=== PATIENT | female | born 1965 | race Caucasian/White ===

== ENCOUNTER 2022-10-23 11:23 | Emergency (ER) | payer OTHER ==
--- OUTSIDE RECORDS SUMMARY | 2022-10-23 11:26 | XMS REPORT | Continuity of Care Document ---
:1965 Author Organization [facility] t Address [address] [place] [address] Dr. [address] [place] [address] Care Team Providers Name Role Phone Pcp, Patient Does Not Have A Primary Care Physician +[id number] Doctor Unassigned, [place] Attending Clinician Unavailable Maisha Ahuja MD Attending Clinician MAISHA AHUJA Attending Clinician Unavailable George Hamm DO Attending Clinician Maegan Loya RN Attending Clinician Unavailable Only, Adc Test Attending Clinician Unavailable Nathan Butt MD Attending Clinician NATHAN BUTT Attending Clinician Unavailable Payers Payer Name Policy Type Policy Number Effective Date Expiration Date S luz marina [employer] CHOICE POS [id number] 2018 00:00:00 II Problems This patient has no known problems. Allergies, Adverse Reactions, Alerts Allergy Allergy Status Severity Reaction(s) Onset Inactive Treating Comm ents Source Name Type Date Date Clinician NO KNOWN Drug Active Univers ALLERGIE Class ity of [facility] Social History Social Habit Start Date Stop Date Quantity Comments Source History [facility] University o f Alcohol Comment [place] Med ical Branch Exposure to Not sure University of SARS-CoV-2 [facility] (event) Branch Tobacco use and 2021-01-26 2021-01-26 Never used Universit y of exposure 00:00:00 00:00:00 [facility] Alcohol intake 2021-01-26 2021-01-26 Lifetime University of 00:00:00 00:00:00 non-drinker [facility] (finding) Branch History SDOH 2021-01-19 2021-01-19 1 University o f Alcohol Frequency 00:00:00 00:00:00 [facility] edical Branch History SDCO 2021-01-19 2021-01-19 99 [place] o f Alcohol Std 00:00:00 00:00:00 [place] [facility] Branch History SDCO 2021-01-19 2021-01-19 1 [place] o f Alcohol Binge 00:00:00 00:00:00 [facility] [place] Sex Ass[birth year] At [birth year] Universit y of 00:00:00 00:00:00 [facility] Smoking Status Start Date Stop Date Source Never smoked tobacco [facility] Medications Ordered Filled Start Stop Current Ordering Indication Dosage Frequency Signature Comments Components Source Medication Medication Date Date Medication? Clinician (SIG) Name Name estradioL Yes [id number] 1{each} Insert 1 Univers (IMVEXXY 9- Each into ity of [place] P[place] 4 mcg 00 daily. Medica l Inst Insert Branch into vagina daily for the first 2 weeks and then two times a week for 2 weeks, then every 3 to 4 days. estradioL Yes [id number] 1{each} Insert 1 Univers (IMVEXXY 9-02 Each into ity of [place] 4 mcg 00 daily. Medica l Inst Insert Branch into vagina daily for the first 2 weeks and then two times a week for 2 weeks, then every 3 to 4 days. estradioL Yes [id number] 1{each} Insert 1 Univers (IMVEXXY 9-02 Each into ity of [place] PACK[place] 4 mcg 00 daily. Medica l Inst Insert Branch into vagina daily for the first 2 weeks and then two times a week for 2 weeks, then every 3 to 4 days. estradioL 2020- No [id number] 1{each} Insert 1 Univers (IMVEXXY 03-07 Each into ity o f MAINTENANCE 00:00: 00:00 vagina [place] PACK) 4 mcg 00 :00 daily. Medica l Inst Insert Branch into vagina daily for the first 2 weeks and then two times a week for 2 weeks, then every 3 to 4 days. estradioL 2020- No [id number] 1{each} Insert 1 Univers (IMVEXXY -12 07-28 Each into ity o f MAINTENANCE 00:00: 00:00 vagina [place] PACK) 4 mcg 00 :00 daily. Medica l Inst Insert Branch into vagina daily for the first 2 weeks and then two times a week for 2 weeks, then every 3 to 4 days. conjugated 2020-0 Yes [id number] .5g Insert 0.5 Univers estrogens 3-17 g into ity of (PREMARIN[place] 0.625 00 bedtime. Medical mg/gram Take Branch vaginal nightly cream for 21 days, then off for 7 days, then twice per week. alendronate 0 Yes 35mg Take 35 mg Univers 35 mg 2-24 by mouth ity of tablet 19:45: weekly. [address] calcium 2020-0 Yes Take by Univers carbonate/v 2-24 mouth. ity of itamin D2 19:45: [place] (CALCIUM 40 Medical 600 + D Branch ORAL) MULTIVITAMI 0 Yes Take by Uni vers N ORAL 2-24 mouth. ity of 19:45: [address] alendronate 2020-0 Yes 35mg Take 35 mg Univers 35 mg 2-24 by mouth ity of tablet 19:45: weekly. [address] calcium 2020-0 Yes Take by Univers carbonate/v 2-24 mouth. ity of itamin D2 19:45: [place] (CALCIUM 40 Medical 600 + D Branch ORAL) MULTIVITAMI 0 Yes Take by Uni vers N ORAL 2-24 mouth. ity of 19:45: [address] alendronate 2020-0 Yes 35mg Take 35 mg Univers 35 mg 2-24 by mouth ity of tablet 19:45: weekly. [address] calcium 2020-0 Yes Take by Univers carbonate/v 2-24 mouth. ity of itamin D2 19:45: [place] (CALCIUM 40 Medical 600 + D Branch ORAL) MULTIVITAMI 2020-0 Yes Take by Uni vers N ORAL 2-24 mouth. ity of 19:45: [address] alendronate 2020-0 Yes 35mg Take 35 mg Univers 35 mg 2-24 by mouth ity of tablet 19:45: weekly. [address] calcium 2020-0 Yes Take by Univers carbonate/v 2-24 mouth. ity of itamin D2 19:45: [place] (CALCIUM 40 Medical 600 + D Branch ORAL) MULTIVITAMI 0 Yes Take by Uni vers N ORAL 2-24 mouth. ity of 19:45: [address] alendronate 0 Yes 35mg Take 35 mg Univers 35 mg 2-24 by mouth ity of tablet 19:45: weekly. [address] calcium 0 Yes Take by Univers carbonate/v 2-24 mouth. ity of itamin D2 19:45: [place] (CALCIUM 40 Medical 600 + D Branch ORAL) MULTIVITAMI 0 Yes Take by Uni vers N ORAL 2-24 mouth. ity of 19:45: [address] alendronate Yes 35mg Take 35 mg Univers 35 mg 2-24 by mouth ity of tablet 19:45: weekly. [address] calcium Yes Take by Univers carbonate/v 2-24 mouth. ity of itamin D2 19:45: [place] (CALCIUM 40 Medical 600 + D Branch ORAL) MULTIVITAMI Yes Take by Uni vers N ORAL 2-24 mouth. ity of 19:45: [address] alendronate Yes 35mg Take 35 mg Univers 35 mg 2-24 by mouth ity of tablet 13:45: weekly. [address] calcium 0 Yes Take by Univers carbonate/v 2-24 mouth. ity of itamin D2 13:45: [place] (CALCIUM 40 Medical 600 + D Branch ORAL) MULTIVITAMI Yes Take by Uni vers N ORAL 2-24 mouth. ity of 13:45: [address] alendronate 2020-0 Yes [id number] 35mg Take 1 Univers 35 mg 2-24 tablet by ity of tablet 00:00: mouth [place] 00 weekly. [facility] Branch estradioL 2020-0 Yes [id number] 2g Insert 2 g Univers 0.01 % (0.1 2-24 into ity of mg/gram) 00:00: vagina at [facility] s vaginal 00 bedtime. Medical cream Every Branch night for 2 weeks, then 2-3 times per week. alendronate 0 Yes [id number] 35mg Take 1 Univers 35 mg 2-24 tablet by ity of tablet 00:00: mouth [place] [address] [facility] alendronate Yes [id number] 35mg Take 1 Univers 35 mg 2-24 tablet by ity of tablet 00:00: mouth [place] [address] [facility] alendronate Yes [id number] 35mg Take 1 Univers 35 mg 2-24 tablet by ity of tablet 00:00: mouth [place] [address] [facility] alendronate Yes [id number] 35mg Take 1 Univers 35 mg 2-24 tablet by ity of tablet 00:00: mouth [place] [address] [facility] alendronate Yes [id number] 35mg Take 1 Univers 35 mg 2-24 tablet by ity of tablet 00:00: mouth [place] [address] [facility] alendronate Yes [id number] 35mg Take 1 Univers 35 mg 2-24 tablet by ity of tablet 00:00: mouth [place] [address] [facility] estradioL Yes [id number] 2g Insert 2 g Univers 0.01 % (0.1 2-24 into ity of mg/gram) 00:00: vagina at [facility] s vaginal 00 bedtime. Medical cream Every Branch night for 2 weeks, then 2-3 times per week. No known No Univers medications [facility] No known No Univers medications [facility] No known No Univers medications [facility] Immunizations Ordered Filled Immunization Date Status Comments [facility] e Immunization Name Name Influenza Virus 2020-09-26 Completed Universit y of Vaccine 00:00:00 [facility] Influenza Virus 2020-09-26 Completed Universit y of Vaccine 00:00:00 [facility] Influenza Virus 2020-09-26 Completed Universit y of Vaccine 00:00:00 [facility] Influenza Virus 2020-09-26 Completed Universit y of Vaccine 00:00:00 [facility] Influenza Virus 2020-09-26 Completed Universit y of Vaccine 00:00:00 [facility] Influenza Virus 2020-09-26 Completed Universit y of Vaccine 00:00:00 [facility] Influenza Virus 2020-09-26 Completed Universit y of Vaccine 00:00:00 [facility] Procedures Procedure Date / Time Performing Clinician Source Performed AUTHORIZATION FOR RELEASE 2022-06-12 05:01:00 Doctor Unassigned, [facility] [place] [facility] MEDICATION CORRESPONDENCE 2021-02-24 05:01:00 Doctor Alejo, [facility] [place] [facility] DEXA AXIAL (HIP AND 2021-01-26 19:43:10 Maisha Ahuja [facility] SPINE) Medical Branch CONSENT/REFUSAL FOR 2021-01-26 19:21:34 Doctor Alejo, [facility] DIAGNOSIS AND TREATMENT [place] [facility] ASSIGNMENT OF BENEFITS 2021-01-26 19:21:15 [facility], [facility] [place] [facility] ASSIGNMENT OF BENEFITS 2020-08-27 16:38:19 Doctor Unasskenyon, [facility] [place] [facility] Encounters Start End Encounter Admission Attending Care Care Encounter Source Date/Time Date/Time Type Type Clinicians Facility Department ID 2022-06-12 2022-06-12 Orders Doctor CESAR 1.2.840.114 [id number] Univers 00:00:00 00:00:00 Only UnassLORY [place] [id number] ity of [place] [facility] [id number] Ruy as [id number] [facility] 009 Branch 2021-07-28 2021-07-28 Refill Maisha Ahuja [facility] 1.2.840.114 [id number] Univers 00:00:00 00:00:00 [place] [id number] it y of Women's 4.2.7.2.686 [facility] [id number] [facility] 134 Branch 2021-03-03 2021-03-03 Outpatient R MAISHA AHUJA [facility] [id number] Univers 13:00:00 13:00:[address] [facility] 2021-02-24 2021-02-24 Orders Doctor CESAR 1.2.840.114 [id number] Univers 00:00:00 00:00:00 Only UnassLORY [place] [id number] ity of [place] [facility] 4.2.7.2.686 [place]uy as [id number] [facility] 009 Branch 2021-02-15 2021-02-15 Patient Hansel [facility] 1.2.840.114 [id number] Univers 00:00:00 00:00:00 Outreach George NG [id number] i ty of [facility] 4.2.7.2.686 [place] [id number] Ca dical 388 Branch 2021-01-26 2021-01-26 [facility] Maisha Ahuja [facility] 1.2.840.114 [id number] Univers 13:00:00 23:59:00 Encounter [place] [id number] ity of [place].7.2.686 [place] [id number] [facility] 800 Branch 2021-01-26 2021-01-26 Outpatient R MAISHA AHUJA [facility] [id number] Univers 00:00:00 00:00:[address] [facility] 2021-01-26 2021-01-26 Lulú [place]ES[place] 1.2.840.114 [id number] Univers 00:00:00 00:00:00 Only Unassigned, L[place] [id number] ity of [place] [facility] 4.2.7.2.686 [place] [id number] [facility] 009 Branch 2021-01-19 2021-01-19 Outpatient R MAISHA AHUJA [facility] [id number] Univers 13:30:00 13:30:[address] [facility] 2020-08-28 2020-08-28 Maegan Vega 1.2.840.114 [id number] 00:00:00 00:00:00 (Out) LORY [id number] [facility] 4.2.7.2.686 [id number] 2020-08-28 2020-08-28 Maegan Vega 1.2.840.114 [id number] Univers 00:00:00 00:00:00 (Out) LORY [id number] it y of [facility] 4.2.7.2.686 [place]uy as [id number] [facility] 019 [place] 2020-08-27 2020-08-27 Laboratory Only, [facility] 1.2.840.114 [id number] 11:41:46 11:56:46 Only Test [place] [id number] [place] 4.2.7.2.686 [place] [id number] [facility] 2020-08-27 2020-08-27 Laboratory Only, Adc Test [facility] 1.2.840. 114 [id number] Univers 11:41:46 11:56:46 Only Nathan Butt 350.1.13.10 ity [facility] 4.2.7.2.686 [facility] [id number] [facility] 353 Branch 2020-08-27 2020-08-27 Outpatient R LINDA [facility] [id number] Univers 11:15:00 11:15:[address] [facility] 2020-08-27 2020-08-27 Orders Doctor ARSENIO 1.2.840.114 [id number] 00:00:00 00:00:00 Only Unassigned, [place] [id number] [facility] 4.2.7.2.686 [id number] 2020-08-27 2020-08-27 Orders Doctor ARSENIO 1.2.840.114 [id number] Univers 00:00:00 00:00:00 Only Unassigned, LORY 350.1.13.10 ity [facility] 4.2.7.2.686 [facility] [id number] [facility] 009 Branch Results Test Description Test Time Test Comments Results Result [facility] e Comments DEXA AXIAL (HIP HISTORY: Universit y of AND SPINE) 3 Osteopenia. [facility] 19:45:32 TECHNIQUE: Bone Branch density estimation is done using DEXA scan, over the righthip and lumbar spines. FINDINGS: Details of the results are enclosed for your review. The summaryis as follows. RIGHT HIP:BMD value is 0.843 gm/sq cm, with T-score of - 1.3. Estimated BMD in theneck is 0.803 g/sq cm with T score of -1.7. LUMBAR SPINES:Average BMD value from L1 through L4 is 1.022 gm/sq cm, with T-score - 1.4.Mild lumbar levoscoliosis and facet arthritis at left L4-L5 noted. CONCLUSION: Osteopenia. ASSESSMENT: WHO-definitions: T-score normal: +/- 1 SD around the meanosteopenia: >1 to 2.4 SD below the meanosteoporosis: >2.5 SD below the meanFracture risk doubles for each 1.5 SD below the mean. [facility], Radiant Results Inft User - 01/26/2021 1:46 PM CSTHISTORY: Osteopenia.TECHNIQ UE: Bone density estimation is done using DEXA scan, over the righthip and lumbar spines.FINDINGS: Details of the results are enclosed for your review. The summaryis as follows.RIGHT HIP:BMD value is 0.843 gm/sq cm, with T-score of - 1.3. Estimated BMD in theneck is 0.803 g/sq cm with T score of -1.7.LUMBAR SPINES:Average BMD value from L1 through L4 is 1.022 gm/sq cm, with T-score - 1.4.Mild lumbar levoscoliosis and facet arthritis at left L4-L5 noted.CONCLUSION: Osteopenia.ASSESSM ENT: WHO-definitions: T-scorenormal: +/- 1 SD around the meanosteopenia: >1 to 2.4 SD below the meanosteoporosis: >2.5 SD below the meanFracture risk doubles for each 1.5 SD below the mean.
[2022-10-23] MEDS ORDERED: IBUPROFEN 400 MG TAB ONE (11:34)
[2022-10-23] MEDS ORDERED: TETANUS & DIPHTHERIA TOX,ADULT 0.5 ML VIAL ONE (11:39)
--- NOTE | 2022-10-23 13:07 | RAD REPORT ---
EXAM DESCRIPTION: RAD - Foot Left 3 View - 10/23/2022 12:13 pm CLINICAL HISTORY: PAIN COMPARISON: Humerus Left dated 10/23/2022; Shoulder Left 2 View dated 10/23/2022 FINDINGS/IMPRESSION: Minimally displaced fracture of the great toe distal phalanx. The displacement is dorsal. The fracture is in part longitudinal and extends to the DIP joint.
--- NOTE | 2022-10-23 13:08 | RAD REPORT ---
EXAM DESCRIPTION: RAD - Humerus Left - 10/23/2022 12:12 pm CLINICAL HISTORY: PAIN COMPARISON: No comparisons FINDINGS/IMPRESSION: No acute fracture. No malalignment. No significant focal degenerative changes.
--- NOTE | 2022-10-23 13:09 | RAD REPORT ---
EXAM DESCRIPTION: RAD - Shoulder Left 2 View - 10/23/2022 12:12 pm CLINICAL HISTORY: PAIN COMPARISON: No comparisons FINDINGS/IMPRESSION: Fracture involving the lateral third of the clavicle with approximately a full shaft width of superior displacement. The AC joint appears maintained. Some overriding of the fractur e is noted.
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
[2022-10-23 14:23] VITALS: BP 106/73; O2SAT 100
== END 2022-10-23 14:17 | disposition home or self-care (01) ==
LOC: ER 11:23
DX: S42.022A Displaced fracture of shaft of left clavicle, initial encounter for closed fracture (principal); S92.422A Displaced fracture of distal phalanx of left great toe, initial encounter for closed fracture; V23.49XA Other motorcycle driver injured in collision with car, pick-up truck or van in traffic accident, initial encounter; Z23 Encounter for immunization
CPT/HCPCS: 90471; 90714; 99284

== ENCOUNTER 2022-10-31 09:57 | Day surgery (SDC) | payer OTHER ==
[2022-10-27 11:12] LABS: Absolute Lymphocytes (CBC) 1.4 K/uL (0.7-4.9); Lymphocytes % 30.6 % (15.3-44.8); MCV 90.6 fL (80-100); MPV 8.1 fL (7.6-11.3); RBC Red Blood Cell Count 3.98 M/uL (3.86-4.86)
[2022-10-27 11:36] LABS: Potassium 4.2 mmol/L (3.5-5.1)
--- NOTE | 2022-10-27 13:42 | EKG ---
Test Date: 2022-10-27 Test Time: 09:25:01 Pecan Huller: LEAH MEASUREMENT RESULTS: Intervals: Rate: 63 ME: 138 QRSD: 62 QT: 452 QTc: 462 [place]: P: 86 ME: 138 QRS: 84 T: 79 INTERPRETIVE STATEMENTS: Normal sinus rhythm Septal infarct, age undetermined Abnormal ECG Compared to ECG 10/27/2010 11:23:26 Myocardial infarct finding now present Electronically Signed On 10-27-22 13:41:51 TRUCK OPERATOR by Dwight Collins
[2022-10-31] MEDS ORDERED: Ringers Lactate 1,000 ML IV ONE (10:16)
[2022-10-31] MEDS ORDERED: LIDOCAINE 1% MPF 5 ML VIAL ONE (10:17)
[2022-10-31] MEDS ORDERED: SODIUM BICARB 50 MEQ/50ML VIAL ONE (10:17)
[2022-10-31] MEDS ORDERED: MIDAZOLAM HCL 2 MG/2 ML INJ ONE (10:17)
[2022-10-31] MEDS ORDERED: FENTANYL CITR 100 MCG/2 ML ONE (10:17)
[2022-10-31] MEDS ORDERED: ROPLVACAINE HCL 40 ML ONE (10:18)
[2022-10-31] MEDS ORDERED: EPINEPHRINE/PF 1 MG/ML AMP ONE (10:18)
[2022-10-31] MEDS ORDERED: dexAMETHasone 10 MG/ML VIAL ONE ×2 (10:18→12:09)
[2022-10-31 10:55] VITALS: O2SAT 100
[2022-10-31] MEDS ORDERED: ROCURONIUM 50 MG/5 ML VIAL IV ONE (12:08)
[2022-10-31] MEDS ORDERED: propofoL 200 MG/20 ML VIAL IV ONE (12:08)
[2022-10-31] MEDS ORDERED: ONDANSETRON 4 MG/2 ML VIAL ONE (12:09)
[2022-10-31] MEDS ORDERED: KETOROLAC 30 MG/ML INJ ONE (12:09)
[2022-10-31] MEDS ORDERED: LIDOCAINE 2% MPF 5 ML VIAL ONE (12:09)
[2022-10-31] MEDS: CEFAZOLIN SODIUM 1 GM/VIAL ONE ×2 (12:31→12:57)
[2022-10-31] MEDS ORDERED: NS 0.9% VIAL 10 ML ONE ×3 (13:30→14:13)
[2022-10-31] MEDS ORDERED: Mastisol Adhesive Liq ONE (14:35)
[2022-10-31] MEDS ORDERED: GLYCOPYRROLATE 0.2 MG/ML SYR ONE (14:35)
[2022-10-31] MEDS ORDERED: NEOSTIGMINE 1 MG/ML -5 ML ONE (14:37)
--- NOTE | 2022-10-31 15:09 | RAD REPORT ---
EXAM DESCRIPTION: RAD - Clavicle Left - 10/31/2022 2:51 pm CLINICAL HISTORY: Clavicle fracture FINDINGS: Thirteen fluoroscopic spot images obtained. Fluoroscopy time 0.3 minutes Intraoperative films reveal sideplate and screws affix a distal clavicular fracture. Surgery performed by Dr. Mayes
[2022-10-31 15:23] VITALS: TEMP 97
[2022-10-31 16:37] VITALS: BP 115/57
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
== END 2022-10-31 16:30 | disposition home or self-care (01) ==
LOC: OR 09:57
PROVIDERS: ATTEND Orthopaedic Surgery
PROC: 0PSB04Z Reposition Left Clavicle with Internal Fixation Device, Open Approach (ICD-10-PCS; principal; 2022-10-31 12:30)
DX: S42.032A Displaced fracture of lateral end of left clavicle, initial encounter for closed fracture (principal)
CPT/HCPCS: 93005; 85025; 80048; 36415; 73000; 23515; J2704; J0171; J2001 ×2; J2250; J3010; J1100 ×2; J2795; A4216 ×3; J2710; J7120; J2405; J0690

== ENCOUNTER 2023-02-09 09:18 | Day surgery (SDC) | payer OTHER ==
[2023-02-06 09:52] LABS: Absolute Lymphocytes (CBC) 1.6 K/uL (0.7-4.9); Hematocrit 38.5 % (36.0-45.0); Lymphocytes % 33.1 % (15.3-44.8); MCV 90.7 fL (80-100); MPV 7.8 fL (7.6-11.3); RBC Red Blood Cell Count 4.25 M/uL (3.86-4.86)
[2023-02-06 10:07] LABS: Potassium 3.7 mmol/L (3.5-5.1)
[2023-02-09] MEDS: CEFAZOLIN SODIUM 1 GM/VIAL ONE ×2 (08:58→09:58)
[2023-02-09] MEDS ORDERED: FENTANYL CITR 100 MCG/2 ML ONE (09:34)
[2023-02-09] MEDS ORDERED: propofoL 200 MG/20 ML VIAL IV ONE (09:35)
[2023-02-09] MEDS ORDERED: Ringers Lactate 1,000 ML IV ONE (09:36)
[2023-02-09] MEDS ORDERED: LIDOCAINE 2% MPF 5 ML VIAL ONE (09:38)
[2023-02-09] MEDS ORDERED: MIDAZOLAM HCL 2 MG/2 ML INJ ONE (09:38)
[2023-02-09] MEDS ORDERED: ONDANSETRON 4 MG/2 ML VIAL ONE (09:42)
[2023-02-09] MEDS ORDERED: GLYCOPYRROLATE 0.2 MG/ML SYR ONE (09:44)
[2023-02-09] MEDS ORDERED: ROCURONIUM 50 MG/5 ML VIAL IV ONE (09:44)
[2023-02-09] MEDS ORDERED: NEOSTIGMINE 1 MG/ML -10 ML VIAL ONE (09:46)
[2023-02-09] MEDS ORDERED: Mastisol Adhesive Liq ONE (10:34)
[2023-02-09] MEDS ORDERED: dexAMETHasone 10 MG/ML VIAL ONE (10:35)
[2023-02-09] MEDS ORDERED: BUPIVACAINE 0.5% PF 10 ML VIAL ONE (10:47)
--- NOTE | 2023-02-09 11:09 | P.BOP ---
Preoperative diagnosis: left retained clavicle hook plate Postoperative diagnosis: same Primary procedure: Removal of retined hook plate Estimated blood loss: <10 ccs Anesthesia: General Transferred to: Recovery Room Condition: Good
[2023-02-09] MEDS ORDERED: NALOXONE 0.4 MG/ML VIAL ONE (11:10)
[2023-02-09] MEDS ORDERED: HYDROMORPHONE HCL 1 MG/ML INJ ONE (11:47)
[2023-02-09 13:09] VITALS: BP 123/81; TEMP 96.7; O2SAT 100
--- NOTE | 2023-02-09 20:55 | OP ---
Date of Procedure: 02/09/2023 Surgeon: Jamin Mayes MD Preoperative Diagnosis: Retained left clavicle hook plate. Postoperative Diagnosis: Retained left clavicle hook plate. Procedure: Left clavicle hook plate removal. Estimated Blood Loss: Less than 10 cc. There were no complications. No pathology specimens sent. Indications: Ms. Quezada is a 57-year-old female who unfortunately sustained a very distal highly dis placed clavicle fracture and she underwent open reduction internal fixation by me using a hook plate. This was deemed to be the best option for this very displaced and quite distal fracture with the pl an being from before the surgery that if we needed to use the plate, which we did that we would event ually remove it. Now is the time to remove the hook plate and risks, benefits, and alternatives of t his have been discussed with her and her family. She states she understands things presented and wis hed to proceed. Description Of Procedure: The patient was taken to the operating room and placed in supine position. General anesthesia obtained by staff. Following this, she was then placed in a beach chair positio n. Her left upper extremity was then prepped and draped in usual sterile fashion for this procedure. After this, her incision, which had previously been used was easily seen and exploited. This was t aken down carefully through skin and soft tissues. Meticulous hemostasis was being maintained using Bovie electrocautery. This leads down to the plate itself. The plate itself was gently unroofed usi ng a wooden handle elevator. This allowed for removal of the 5 screws, which secured the plate. Aft er this, it was gently wiggled and then extracted from underneath the acromion. The wound was then i rrigated and the skin was closed in a deep layer as well as the platysmal layer as well as the skin layer. She was then placed in Steri-Strips and Aquacel dressing and taken to rec overy room. /OLIVA Voice ID: [id number] Report ID: [id number]
== END 2023-02-09 13:05 | disposition home or self-care (01) ==
LOC: OR 09:18
PROVIDERS: ATTEND Orthopaedic Surgery
PROC: 0PPB04Z Removal of Internal Fixation Device from Left Clavicle, Open Approach (ICD-10-PCS; principal; 2023-02-09 11:00)
DX: Z47.2 Encounter for removal of internal fixation device (principal)
CPT/HCPCS: 85025; 80048; 36415; 20680; J2704; J2710; J2310; J2001; J2250; J3010; J1100; J1170; J2405; J7120; J0690